=== PATIENT | male | born 1975 | race Caucasian/White ===

== ENCOUNTER 2017-03-15 17:57 | Emergency (ER) | payer OTHER ==
[~2017-03-15] VITALS: Ht 190.5 cm; Wt 115.4 kg
[2017-03-15] MEDS ORDERED: PERCOCET 5/31 TABLET PO (21:44)
[2017-03-15 22:07] VITALS: BP 156/80
== END 2017-03-15 22:09 | disposition home or self-care (01) ==
LOC: EME 17:57
PROC: 0QSJXZZ Reposition Right Fibula, External Approach (ICD-10-PCS; principal; 2017-03-15)
DX: S82.451A Displaced comminuted fracture of shaft of right fibula, initial encounter for closed fracture (principal); S82.251A Displaced comminuted fracture of shaft of right tibia, initial encounter for closed fracture; V86.49XA Person injured while boarding or alighting from other special all-terrain or other off-road motor vehicle, initial encounter; Y93.39 Activity, other involving climbing, rappelling and jumping off
CPT/HCPCS: 73590; 73600; 73610; 99281; 99285; J2060; J2270